=== PATIENT | male | born 1990 | race Caucasian/White ===

== ENCOUNTER → 2018-06-02 | Outpatient (CLI) | payer OTHER ==
[~2018-06-02] MED LIST: IOPAMIDOL 370 MG/ML 200 ML INFUS..BTL INJ ONE; SODIUM CHLORIDE 0.9% 50ML 50 ML ONE
--- NOTE | 2018-06-02 17:39 | Diagnostic Imaging Report ---
EXAM: CT Chest WITH contrast 06/02/2018 2:57 PM INDICATION: ^SOB/CHEST PAIN AT REST/LIGHT-HEADED COMPARISON: None TECHNIQUE: Chest was scanned utilizing a multidetector helical scanner from the lung apex through the level of the adrenal glands without administration of IV contrast. Coronal and sagittal reformations were obtained. Pulmonary emboli protocol was performed. Sagittal and coronal MIP reconstruction images were performed at the scanner workstation. IV CONTRAST: 100 mL of Isovue 370 COMPLICATIONS: None RADIATION DOSE: Total DLP: 525.26 mGy*cm Estimated effective dose: (DLP x 0.014 x size factor) mSv CTDIvol has been reviewed. It is below the limits set by the Radiation Protocol Committee (RPC). FINDINGS: LINES/ TUBES: None. LUNGS AND AIRWAYS: No pulmonary emboli. The lungs are unremarkable. Airways are normal. 3.2 mm nodule in the right middle lobe (series 3, image 66). PLEURA: The pleural spaces are clear. HEART AND MEDIASTINUM: The thyroid gland is normal. No mediastinal, hilar or axillary lymphadenopathy. The heart is normal in size. There is no pericardial effusion. Vein pulmonary artery measures 3.2 cm. Ascending aorta measures 3.4 cm. UPPER ABDOMEN: Unremarkable. BONES: The visualized bony thorax is within normal limits. SOFT TISSUES: Unremarkable. IMPRESSION: No pulmonary emboli. Signed by: Dr. Farhan Osorio M.D. on 06/02/2018 5:35 PM
== END ==
LOC: CT 14:48
PROVIDERS: ATTEND Family Medicine
DX: R06.02 Shortness of breath (principal); R07.9 Chest pain, unspecified; R42 Dizziness and giddiness
CPT/HCPCS: 71260; Q9967

== ENCOUNTER → 2018-06-09 | Day surgery (SDC) | payer OTHER ==
[2018-06-09] VITALS (8 sets, daily range): BP systolic 88–142; BP diastolic 50–99
[~2018-06-09] VITALS: Ht 170.2 cm; Wt 108.9 kg
[~2018-06-09] MED LIST changes: +FENTANYL CITRATE/PF 100MCG/2 ML INJ ONE; +HEPARIN SOD (PORCINE) 1000 UNIT/ML 30ML ONE; +HEPARIN SOD/SOD CHLORIDE 2,000 ML ONE; +LIDOCAINE HCL 1% LOCAL INJ 20 ML VIAL ONE; +MIDAZOLAM HCL 2 MG/2 ML VIAL ONE; +NITROGLYCERIN/D5W 200 MCG/ML 250 ML ONE; +SODIUM CHLORIDE 0.9% 1000ML 1,000 ML ONE; -SODIUM CHLORIDE 0.9% 50ML 50 ML ONE; +VERAPAMIL HCL 2.5 MG/ML 2 ML VIAL ONE
--- OUTSIDE RECORDS SUMMARY | 2018-06-09 05:57 | XMS REPORT ---
Author Author [facility] Address Unknown Phone Unavailable Care Team Providers Care Supervisor Picking Crew Name Role Phone ALFREDO MCGOWAN Unavailable Unavailable Problems This patient has no known problems. Allergies, Adverse Reactions, Alerts This patient has no known allergies or adverse reactions. Medications This patient has no known medications. Results Test Description Test Time Test Comments Text Results Atomic Results Result Comments CT CHEST W 2018-06-02 15:46:00 [place] [address] Patient Name: KELL PAREKH MR #: [id number] : 1990 Age/Sex: 28/M Req #: [id number] Adm Physician: Ordered by: ALFREDO MCGOWAN DO Report #: [id number] Location: CT Room/Bed: Procedure: [id number] CT/CT CHEST W Exam Date: 06/02/18 Exam Time: 1515 REPORT STATUS: Signed EXAM: CT Chest WITH contrast 06/02/2018 2:57 PM INDICATION: SOB/CHEST PAIN AT REST/LIGHT-HEADED COMPARISON: None TECHNIQUE: Chest was scanned utilizing a multidetector helical scanner from the lung apex through the level of the adrenal glands without administration of IV contrast. Coronal and sagittal reformations were obtained. Pulmonary emboli protocol was performed. Sagittal and coronal MIP reconstruction images were performed at the scanner workstation. IV CONTRAST: 100 mL of Isovue 370 COMPLICATIONS: None RADIATION DOSE: Total DLP: 525.26 mGy*cm Estimated effective dose: (DLP x 0.014 x size factor) mSv CTDIvol has been reviewed. It is below the limits set by the Radiation Protocol Committee (RPC). FINDINGS: LINES/ TUBES: None. LUNGS AND AIRWAYS: No pulmonary emboli. The lungs are unremarkable. Airways are normal. 3.2 mm nodule in the right middle lobe (series 3, image 66). PLEURA: The pleural spaces are clear. HEART AND MEDIASTINUM: The thyroid gland is normal. No mediastinal, hilar or axillary lymphadenopathy. The heart is normal in size. There is no pericardial effusion. Vein pulmonary artery measures 3.2 cm. Ascending aorta measures 3.4 cm. UPPER ABDOMEN: Unremarkable. BONES: The visualized bony thorax is within normal limits. SOFT TISSUES: Unremarkable. IMPRESSION: No pulmonary emboli. Signed by: Dr. aKrson Osorio M.D. on 06/02/2018 5:35 PM Dictated By: KARSON OSORIO MD 173 Transcribed By: CARINE on 06/02/181734 COPY TO: ALFREDO MCGOWAN DO
[2018-06-09 08:09] LABS: BASOPHILS % 0.3 % (0.0-1.0); EOSINOPHILS % 0.5 % (0.0-6.0); HEMATOCRIT 44.9 % (38.2-49.6); HEMOGLOBIN 15.1 g/dL (14.0-18.0); LYMPHOCYTES # (AUTO) 2.3 (1.0-3.2); LYMPHOCYTES % 30.4 % (18.0-39.1); MEAN CORPUSCULAR HEMOGLOBIN 30.9 pg (28-32); MEAN CORPUSCULAR HGB CONC 33.6 g/dL (31-35); MONOCYTES # (AUTO) 0.6 (0.2-0.8); MONOCYTES % 8.4 % (4.4-11.3); NEUTROPHILS # (AUTO) 4.6 (2.1-6.9); PLATELET COUNT 284 x10e3/uL (140-360); RED BLOOD COUNT 4.88 x10e6/uL (4.3-5.7); RED CELL DISTRIBUTION WIDTH 12.3 % (11.7-14.4)
[2018-06-09 08:19] LABS: INR 0.82; PROTHROMBIN TIME 12.1 seconds (11.9-14.5)
[2018-06-09 08:29] LABS: ALANINE AMINOTRANSFERASE 76 IU/L (0-55); ALBUMIN 3.7 g/dL (3.5-5.0); ALKALINE PHOSPHATASE 65 IU/L (40-150); ANION GAP 14.2 mmol/L (8-16); BLOOD UREA NITROGEN 15 mg/dL (7-26); BUN/CREATININE RATIO 13 (6-25); CALCIUM 9.6 mg/dL (8.4-10.2); CARBON DIOXIDE 22 mmol/L (22-29); CHLORIDE 104 mmol/L (98-107); CHOL/HDL RATIO 6.3 (3.9-4.7); CHOLESTEROL 259 MD/DL (0-199); CREATININE, SERUM 1.17 mg/dL (0.72-1.25); EST GLOMERULAR FILTRATION RATE > 60 ML/MIN (60-); GLUCOSE 104 mg/dL (74-118); HDL CHOLESTEROL 41 MG/DL (40-60); LDL CHOLESTEROL 148 MG/DL (60-130); POTASSIUM 4.2 mmol/L (3.5-5.1); SODIUM 136 mmol/L (136-145); TRIGLYCERIDES 351 MG/DL (0-149)
--- NOTE | 2018-06-09 17:05 | Operative Report ---
DATE OF PROCEDURE: June 09, 2018 INDICATION FOR THE PROCEDURE: Chest pain, positive stress test with anterior ischemia. PREPROCEDURE ASSESSMENT: The risks, the benefits and alternatives of the procedure were explained to the patient, and informed consent was obtained prior to the procedure. Patient's medical history, prior experience with anesthesia, social history and imaging data were reviewed prior to the procedure, and patient was deemed to be an appropriate candidate for moderate sedation. The risks, benefits and alternatives of the moderate sedation were explained to the patient prior to the procedure. MEDICATIONS ADMINISTERED: Please see nursing notes for medications administered during this procedure. PROCEDURES PERFORMED: 1. Coronary angiography through right radial approach. 2. Left heart catheterization. PROCEDURE DETAILS: Patient was brought to the cardiac catheterization laboratory in a fasting state. Right wrist was prepped and draped in a sterile fashion. A 6-Frisian Slender sheath was inserted into the right radial artery using modified Seldinger technique. A coronary angiography was performed using a [employer] diagnostic catheter to perform the angiography of the right coronary artery as well as the left heart catheterization. For angiography of the left coronary system, an XB-3.0 guiding catheter was used. Multiple orthogonal views were obtained of each coronary artery system. All catheters were removed over a wire. Arteriotomy was closed using a TR band. Case ended without any complications. ESTIMATED BLOOD LOSS: 20 mL. IMPLANTS: None. SPECIMENS REMOVED: None. COMPLICATIONS: None. FINDINGS: Right-dominant coronary artery system with no epicardial coronary artery disease. However, angiography did demonstrate slow flow in the coronary artery system consistent with endothelial dysfunction and/or microvascular disease. RECOMMENDATIONS: 1. Discharge home once TR band is successfully removed after indicated observation period. 2. Continue medical therapy and risk-factor control. 3. Follow up in clinic 2 weeks post procedure. Job#: [id number]
== END | disposition home or self-care (01) ==
LOC: CATH LAB 05:55
PROVIDERS: ATTEND Internal Medicine
DX: I20.8 Other forms of angina pectoris (principal); R94.39 Abnormal result of other cardiovascular function study; Z68.38 Body mass index [BMI] 38.0-38.9, adult
CPT/HCPCS: 36415; 80053; 80061; 85025; 85610; 93458; J1644; J2001; J2250; J7030; Q9967